=== PATIENT | female | born 1980 | race Caucasian/White ===

== ENCOUNTER → 2017-03-07 09:29 | Outpatient (CLI) | payer MEDICAID ==
[2014-12-12 07:45] VITALS: BMI 38.6
[~2017-03-07 09:29] MED LIST: HYDROCODONE-APA1 TAB PO; IBUPROFEN PM; LEXAPRO10 MG PO; MOBIC7.5 MG PO; TRIGLIDE160 MG PO; ULTRAM50 MG PO; ZYRTEC10 MG PO
== END | disposition home or self-care (01) ==
LOC: D.MRI 09:29
DX: M25.562 Pain in left knee (principal)

== ENCOUNTER 2017-03-21 06:15 | Day surgery (SDC) | payer MEDICAID ==
[2017-03-18 12:11] LABS: HEMATOCRIT 41.2 % (36.0-48.0); MCH 30.5 pg (26.0-34.0); MCV 89.8 fL (80.0-100.0); MEAN PLATELET VOLUME 9.4 fL (7.4-10.4); RBC 4.59 10x6/uL (4.00-5.40); RDW 13.7 % (11.5-14.5); WBC 10.8 10x3/uL (4.8-10.8)
[~2017-03-21] VITALS: Ht 165.1 cm; Wt 91.6 kg
[~2017-03-21 06:15] MED LIST changes: +BC POWDER
[2017-03-21 07:27] VITALS: BP 133/88; Ht 165.1 cm; Wt 91.6 kg
[2017-03-21 07:50] LABS: HCG URINE NEGATIVE (NEGATIVE)
--- NOTE | 2017-03-21 11:46 | NUR ---
PARENTS NOTIFIED OF SURGICAL DELAY.
[2017-03-21] MEDS ORDERED: HYDROCODONE-APA1 TAB PO (13:03)
--- NOTE | 2017-03-21 15:05 | NUR ---
PATIENT ASSISTED TO AMBULATE TO BATHROOM USING CRUTCHES WITHOUT DIFFICULTY. LEFT KNEE IMMOBILIZER IS IN PLACE, CAUTIONED PATIENT STRONGLY TO NOT PUT ANY WEIGHT ON LEFT KNEE UNTIL BLOCK COMPLETELY WEARS OFF AFTER DISCHARGE, STATES UNDERSTANDING
--- NOTE | 2017-03-21 15:30 | NUR ---
DISCHARGE INSTRUCTIONS REVIEWED WITH PATIENT. PATIENT DISCHARGED HOME VIA WHEELCHAIR TO PRIVATE VEHICLE WITH MOTHER AND FATHER
--- NOTE | 2017-03-25 14:19 | OP ---
PATIENT NAME: GEORGETTE GILMAN MEDICAL RECORD: [id number] :82 LOCATION:[facility] ADMISSION DATE: SURGEON: BJ CLAIRE MD DATE OF OPERATION: 03/21/2017 PREOPERATIVE DIAGNOSIS: Anterior cruciate ligament deficient with tear, left knee. POSTOPERATIVE DIAGNOSIS: Anterior cruciate ligament deficient with tear, left knee. PROCEDURE: Arthroscopic allograft vaso-skjzte-ytum ACL reconstruction using TightRope technique. OPERATIVE SUMMARY IN DETAIL: After obtaining the appropriate preoperative orthopedic surgery consent as well as anesthetic consultation, evaluation and clearance, the patient was brought to the operating room and placed on the operating table in supine position. After adequate general laryngeal mask was administered, tourniquet was placed about the proximal aspect of the left lower extremity. Left lower extremity was then prepped and draped in routine sterile fashion. Leg was elevated and exsanguinated, tourniquet was inflated to 350 mmHg. Routine inferolateral portal was established followed by superomedial portal and inferomedial portal. Diagnostic arthroscopy revealed only an ACL tear. The ACL tear was then debrided using a large arthroscopic resector. Notchplasty was performed. At this point, arthroscopic-guided tibial tunnel size 10 was created and then over the top guide was used to create the femoral tunnel approximately 30 mm deep with a size 10 acorn reamer. The 4 mm cannulated reamer was reamed over the Beath pin for lateral cortical penetration. At this point, a guide rope was then used to pull through the prepared [id number] allograft. It was seated nicely at the lateral cortex using the TightRope deployment method. Once it was seated firmly, the knee was taken through several ranges of motion and then it was tied distally with both the dog bone as well as a post for double reinforcement. Wounds were copiously irrigated and closed in usual fashion. Sterile dressings were applied. Tourniquet was deflated. The patient was awakened, taken to recovery in stable condition. All final needle and sponge counts were correct. TRANSINT:[id number] Voice Confirmation ID: [id number] DOCUMENT ID: [id number] BJ CLAIRE MD at 1419 CC: [id number] DICTATION DATE: 03/25/17921 MACHINE OPERATOR PACKAGING: 03/25/17 1249 [facility] 03/21/17 [facility] [address] [place] [address]
== END 2017-03-21 15:30 | disposition home or self-care (01) ==
LOC: D.OPS 06:15 → D.PAN 08:45 → D.OPS 12:30
PROVIDERS: Anesthesiology; Orthopaedic Surgery
DX: S83.512A Sprain of anterior cruciate ligament of left knee, initial encounter (principal); Z01.812 Encounter for preprocedural laboratory examination